=== PATIENT | female | born 1970 | race Two or more races ===

== ENCOUNTER 2023-03-26 07:57 | Emergency (ER) | payer OTHER ==
[~2023-03-26] VITALS: Ht 162.6 cm; Wt 54.4 kg
[2023-03-26 09:45] LABS: HEMATOCRIT 34.4 % (36.0-45.00); HEMOGLOBIN 11.5 g/dL (12.0-15.00); MEAN CELL VOLUME 84.5 fL (80.00-100.00); MEAN CORPUSCULAR HEMOGLOBIN 28.3 pg (27.00-32.0); MEAN CORPUSCULAR HGB CONC 33.5 g/dl (32.0-36.0); PLATELET COUNT 181 K/uL (150-450); RED BLOOD COUNT 4.08 M/uL (4.00-6.00)
[2023-03-26 09:53] LABS: URINE APPEARANCE Cloudy; URINE BILIRRUBIN Negative (NEGATIVE); URINE BLOOD Large; URINE COLOR Yellow; URINE GLUCOSE Negative (NEGATIVE); URINE LEUKOCYTE Moderate; URINE NITRATE Negative; URINE PROTEIN Negative (NEGATIVE)
[2023-03-26 09:54] LABS: URINE BACTERIA 832.7 uL (0.0-1933); URINE EPITHELIAL CELLS 48.3 uL (0.0-38.8); URINE RBC 238.8 uL (0.0-20.8); URINE WBC 207.6 uL (0.0-23.2)
[2023-03-26 10:16] LABS: URINE CRYSTALS FEW /HPF
[2023-03-26 10:55] LABS: CREATININE SERUM 0.62 mg/dL (0.55-1.02); GFR 101.89; POTASSIUM 3.38 mEq/L (3.5-5.1)
== END 2023-03-26 13:54 | disposition left against medical advice (07) ==
LOC: ER 07:57
PROVIDERS: General Practice
DX: N23 Unspecified renal colic (principal); N20.0 Calculus of kidney

== ENCOUNTER 2023-11-03 11:02 | Emergency (ER) | payer OTHER ==
[~2023-11-03] VITALS: Ht 162.6 cm; Wt 55.3 kg
[2023-11-03] MEDS ORDERED: ENALAPRIL M1 MG/1 ML PO (11:10)
[2023-11-03 12:19] LABS: HEMATOCRIT 38.4 % (36.0-45.00); HEMOGLOBIN 12.8 g/dL (12.0-15.00); MEAN CELL VOLUME 82.4 fL (80.00-100.00); MEAN CORPUSCULAR HEMOGLOBIN 27.6 pg (27.00-32.0); MEAN CORPUSCULAR HGB CONC 33.5 g/dl (32.0-36.0); PLATELET COUNT 221 K/uL (150-450); RED BLOOD COUNT 4.65 M/uL (4.00-6.00); RED CELL DISTRIBUTION WIDTH 14.4 % (11.5-14.5)
[2023-11-03 12:24] LABS: PH,URINE 5.5 (5.0-8.0); URINE APPEARANCE Turbid; URINE BILIRRUBIN Negative (NEGATIVE); URINE BLOOD Large; URINE COLOR Yellow; URINE GLUCOSE Negative (NEGATIVE); URINE KETONE Trace (NEGATIVE); URINE LEUKOCYTE Trace; URINE NITRATE Negative; URINE PROTEIN 30 (NEGATIVE)
[2023-11-03 12:28] LABS: URINE BACTERIA 167.5 uL (0.0-1933); URINE EPITHELIAL CELLS 37.1 uL (0.0-38.8)
[2023-11-03 12:29] LABS: URINE CAST 1.37 uL (0.0-1.40)
[2023-11-03 12:42] LABS: URINE CRYSTALS MODERATE /HPF
[2023-11-03 12:54] LABS: ALBUMIN 4.3 gm/dL (3.4-5.0); BILIRUBIN TOTAL 0.51 mg/dL (0.3-1.2); CALCIUM 10.2 mg/dL (8.5-10.1); CREATININE SERUM 0.75 mg/dL (0.55-1.02); GFR 81.79; GLOBULINA 4.5 G/DL (2.4-3.5); POTASSIUM 4.24 mEq/L (3.5-5.1); TOTAL PROTEIN 8.8 gm/dL (6.4-8.2)
[2023-11-04] MEDS ORDERED: KETO10TA2 PO (23:38)
[2023-11-04] MEDS ORDERED: TAMS0.4C PO (23:38)
[2023-11-04] MEDS ORDERED: ZOFRAN8 MG PO (23:38)
[2023-11-04] MEDS ORDERED: PEPCID AC20 MG PO (23:38)
== END 2023-11-03 16:38 | disposition home or self-care (01) ==
LOC: ER 11:03
PROVIDERS: Emergency Medicine
DX: N13.2 Hydronephrosis with renal and ureteral calculous obstruction (principal); I10 Essential (primary) hypertension; Z91.018 Allergy to other foods

== ENCOUNTER 2023-11-04 20:36 | Emergency (ER) | payer OTHER ==
[~2023-11-04] VITALS: Ht 162.6 cm; Wt 55.3 kg
[~2023-11-04 20:36] MED LIST: ENALAPRIL M1 MG/1 ML PO
[2023-11-04] MEDS ORDERED: FAMOtidine 10 MG/ML (4ML VIAL) IV ONE (21:45)
[2023-11-04] MEDS ORDERED: TAMSULOSIN HCL 0.4 MG CAP PO ONE (21:45)
[2023-11-04] MEDS ORDERED: CEFTRIAXONE SODIUM 2,000 MG VIAL IV ONE (21:45)
[2023-11-04] MEDS ORDERED: MORPHINE SULFATE 4 MG/ML VIAL IV ONE (21:45)
[2023-11-04] MEDS ORDERED: ONDANSETRON HCL 2 MG/ML VIAL IV ONE (21:45)
[2023-11-04] MEDS ORDERED: 0.9 % SODIUM CHLORIDE 1,000 ML IV ONE (21:45)
[2023-11-04 22:20] LABS: HEMATOCRIT 35.8 % (36.0-45.00); HEMOGLOBIN 11.9 g/dL (12.0-15.00); MEAN CELL VOLUME 84.3 fL (80.00-100.00); MEAN CORPUSCULAR HEMOGLOBIN 28.1 pg (27.00-32.0); MEAN CORPUSCULAR HGB CONC 33.4 g/dl (32.0-36.0); PLATELET COUNT 252 K/uL (150-450); RED BLOOD COUNT 4.24 M/uL (4.00-6.00); RED CELL DISTRIBUTION WIDTH 14.3 % (11.5-14.5)
[2023-11-04 22:23] LABS: URINE APPEARANCE Clear; URINE BILIRRUBIN Negative (NEGATIVE); URINE BLOOD Small; URINE COLOR Yellow; URINE GLUCOSE Negative (NEGATIVE); URINE KETONE 15 (NEGATIVE); URINE LEUKOCYTE Negative; URINE NITRATE Negative; URINE PROTEIN Negative (NEGATIVE); URINE UROBILINOGEN 0.2 E.U./dl
[2023-11-04 22:26] LABS: URINE EPITHELIAL CELLS 8.6 uL (0.0-38.8); URINE RBC 14.8 uL (0.0-20.8); URINE WBC 39.5 uL (0.0-23.2)
[2023-11-04 22:38] LABS: ALBUMIN 4.2 gm/dL (3.4-5.0); BILIRUBIN TOTAL 0.48 mg/dL (0.3-1.2); CALCIUM 9.6 mg/dL (8.5-10.1); CREATININE SERUM 1.09 mg/dL (0.55-1.02); GFR 53.13; GLOBULINA 4.1 G/DL (2.4-3.5); POTASSIUM 3.72 mEq/L (3.5-5.1); TOTAL PROTEIN 8.3 gm/dL (6.4-8.2)
[2023-11-04] MEDS ORDERED: ZOFRAN8 MG PO (23:38)
[2023-11-04] MEDS ORDERED: TAMS0.4C PO (23:38)
[2023-11-04] MEDS ORDERED: KETO10TA2 PO (23:38)
[2023-11-04] MEDS ORDERED: PEPCID AC20 MG PO (23:38)
== END 2023-11-05 00:11 | disposition home or self-care (01) ==
LOC: ER 20:37
PROVIDERS: General Practice
DX: N20.0 Calculus of kidney (principal); R10.9 Unspecified abdominal pain; I10 Essential (primary) hypertension; Z91.018 Allergy to other foods